=== PATIENT | male | born 1970 | race Caucasian/White ===

== ENCOUNTER 2019-07-27 17:24 | Inpatient (IN) | payer OTHER, SELFPAY ==
[2019-07-27 18:06] LABS: #Basophils 0.1 thou/uL (0.0-0.2); #Eosinphils 0.1 thou/uL (0.0-0.7); #Lymphocytes 2.6 thou/uL (1.20-3.40); #Monocytes 0.7 thou/uL (0.11-0.59); #Neutrophils 8.1 thou/uL (1.40-6.50); %Basophils 0.7 % (0.0-1.0); %Eosinophils 1.1 % (0.0-10.0); %Lymphocytes 22.2 % (21.0-51.0); %Monocytes 5.9 % (0.0-10.0); Hemoglobin 17.3 g/dL (14.0-18.0); Mean Corpuscular Hemoglobin 31.5 pg (27.0-31.0); Mean Corpuscular Volume 92.9 fL (78.0-98.0); Mean Platelet Volume 7.8 fL (7.4-10.4); Platelet Count 258 thou/uL (130-400); RBC Distribution Width 11.8 % (11.5-14.5); White Blood Cell (WBC) Count 11.6 thou/uL (4.8-10.8)
[2019-07-27] MEDS ORDERED: Diltiazem 125 MG/25 ML ONE (18:18)
[2019-07-27 18:20] LABS: INR-International Normal Ratio 1.1; PTT 31.6 SEC (22.9-36.1)
[2019-07-27 18:21] LABS: ALT (SGPT) 31 U/L (8-55); AST (SGOT) 18 U/L (5-34); Albumin 4.3 g/dL (3.5-5.0); Alkaline Phosphatase 80 U/L (40-110); Anion Gap 16 mmol/L (10-20); BUN (Urea Nitrogen) 26 mg/dL (8.9-20.6); Bilirubin, Total 0.8 mg/dL (0.2-1.2); CK (CPK) 103 U/L (30-200); Calc. Creatinine Clearance 0 mL/min (70-130); Calcium 9.8 mg/dL (7.8-10.44); Carbon Dioxide 23 mmol/L (22-29); Chloride 103 mmol/L (98-107); Estimated GFR-MDRD 50; Globulin 3.2 g/dL (2.4-3.5); Glucose 176 mg/dL (70-105); Potassium 3.9 mmol/L (3.5-5.1); Protein, Total 7.5 g/dL (6.0-8.3); Sodium 138 mmol/L (136-145)
--- NOTE | 2019-07-27 18:47 | RAD ---
Exam: Chest one view HISTORY:Tachycardia Comparison: 01/04/2016 FINDINGS: Cardiac silhouette: Normal Aorta: Unremarkable Pulmonary vessels: Normal Costophrenic angles: Clear Mediastinum: Questionable hiatal hernia LUNGS: No masses or consolidation. Pneumothorax: None Osseous abnormalities: None IMPRESSION: 1. No acute cardiopulmonary process. 2. Questionable hiatal hernia. 2 view chest radiograph is recommended.
[2019-07-27] MEDS ORDERED: Enoxaparin Sodium 100 MG/ML SYRINGE ONE (19:52)
[2019-07-27] MEDS ORDERED: Aspirin Chewable 81 MG TAB ONE (19:52)
[2019-07-27] MEDS ORDERED: Enoxaparin Sodium 60 MG/0.6 ML SYRINGE ONE (19:52)
[2019-07-27] MEDS ORDERED: Enoxaparin Sodium 80 MG/0.8 ML SYRINGE ONE (19:55)
[2019-07-27] MEDS ORDERED: Ondansetron PF 4 MG/2 ML Vial IVP PRN (20:18)
[2019-07-27] MEDS ORDERED: Acetaminophen 325 MG TAB PO PRN (20:18)
--- NOTE | 2019-07-27 20:32 | PDOC.HHP ---
Hospitalist HPI - History of Present Illness Palpitation, dizziness x 4 days History of Present Illness: 48 YO M with a PMH of CHF and Afib diagnosed in 2014 and currently on Amiodarone, BB and Coumadin, who presented to the ER w c/o dizziness and worsening palpations for 4 days. Pt noted he was running of his meds about 2 weeks ago. He takes part in an "indigent" program that assists with the payment of his meds. Pt had been unable to get this program renewed so he started taking half of his daily meds in an effort to stretch them out till he could get the indigent program approved and thus get a new prescription. 4 days ago, he noted he was having palpitations. He attempted taking extra doses of his med but his symps persisted. He denied CP, SOB, edema or fever. Today, he noted worsening dizziness and near syncope so he decided to come to the ER. Upon presentation to the ER, he was noted in Afib with RVR and started on cardene gtt. he will be admitted for further mgt. Hospitalist ROS - Review of Systems Constitutional: denies: fever, chills, sweats, weakness, malaise, other Eyes: denies: pain, vision change, conjunctivae inflammation, eyelid inflammation, redness, other ENT: denies: ear pain, ear discharge, nose pain, nose discharge, nose congestion , mouth pain, mouth swelling, throat pain, throat swelling, other Respiratory: denies: cough, dry, shortness of breath, hemoptysis, SOB with excertion, pleuritic pain, sputum, wheezing, other Cardiovascular: reports: palpitations, light headedness. denies: chest pain, orthopnea, paroxysmal noc. dyspnea, edema, other Gastrointestinal: denies: nausea, vomiting, abdominal pain, diarrhea, constipation, melena, hematochezia, other Genitourinary: denies: dysuria, frequency, incontinence, hematuria, retention, other Musculoskeletal: denies: neck pain, shoulder pain, arm pain, back pain, hand pain, leg pain, foot pain, other Skin: denies: rash, lesions, zbigniew, bruising, other Neurological: denies: weakness, numbness, incoordination, change in speech, confusion, seizures, other Hospitalist History - Past Medical History Cardiac: reports: AFIB, CHF, HTN - Past Surgical History Past Surgical History: reports: no pertinent history - Family History Family History: reports: Other (alcoholism in father) - Social History Smoking Status: Never smoker Alcohol: reports: Occassional Drugs: reports: marijuana Living Situation: Alone Activity level: independent ambulation - Exam General Appearance: NAD, awake alert Eye: PERRL, anicteric sclera ENT: normocephalic atraumatic, no oropharyngeal lesions, moist mucosa Neck: supple, symmetric, no JVD, no thyromegaly, no lymphadenopathy Heart: no murmur, no gallops, no rubs, irregular Respiratory: CTAB, no wheezes, no rales, no ronchi, normal chest expansion Gastrointestinal: soft, non-tender, non-distended, normal bowel sounds Extremities: no cyanosis, no clubbing, no edema Skin: no lesions, no rashes Neurological: cranial nerve grossly intact, no focal deficits Musculoskeletal: normal tone, normal strength Psychiatric: normal affect, normal behavior, A&O x 3, oriented to place Hospitalist Results - Labs Result Diagrams: 07/27/19 17:51 07/27/19 17:51 Lab results: WBC 11.6 thou/uL (4.8-10.8) H 07/27/19 17:51 Hgb 17.3 g/dL (14.0-18.0) 07/27/19 17:51 Hct 51.0 % (42.0-52.0) 07/27/19 17:51 MCV 92.9 fL (78.0-98.0) 07/27/19 17:51 Plt Count 258 thou/uL (130-400) 07/27/19 17:51 Neutrophils % 70.0 % (42.0-75.0) 07/27/19 17:51 Sodium 138 mmol/L (136-145) 07/27/19 17:51 Potassium 3.9 mmol/L (3.5-5.1) 07/27/19 17:51 Chloride 103 mmol/L (98-107) 07/27/19 17:51 Carbon Dioxide 23 mmol/L (22-29) 07/27/19 17:51 BUN 26 mg/dL (8.9-20.6) H 07/27/19 17:51 Creatinine 1.51 mg/dL (0.7-1.3) H 07/27/19 17:51 Glucose 176 mg/dL (70-105) H 07/27/19 17:51 Calcium 9.8 mg/dL (7.8-10.44) 07/27/19 17:51 Total Bilirubin 0.8 mg/dL (0.2-1.2) 07/27/19 17:51 AST 18 U/L (5-34) 07/27/19 17:51 ALT 31 U/L (8-55) 07/27/19 17:51 Alkaline Phosphatase 80 U/L (40-110) 07/27/19 17:51 Creatine Kinase 103 U/L (30-200) 07/27/19 17:51 Troponin I 0.016 ng/mL (< 0.028) 07/27/19 17:51 B-Natriuretic Peptide 72.8 pg/mL (0-100) 07/27/19 17:51 Serum Total Protein 7.5 g/dL (6.0-8.3) 07/27/19 17:51 Albumin 4.3 g/dL (3.5-5.0) 07/27/19 17:51 Hospitalist H&P A/P - Problem (1) Atrial fibrillation with RVR Code(s): I48.91 - UNSPECIFIED ATRIAL FIBRILLATION Status: Acute Assessment and Plan: Will admit to IMU. Cont cardene gtt, consult cardiology, order Echo, trend troponins. Will cont prior home meds of BB, Amiodarone and coumadin. Monitor INR and HR. F/u with Cardiac recs (2) Obesity, Class III, BMI 40-49.9 (morbid obesity) Code(s): E66.01 - MORBID (SEVERE) OBESITY DUE TO EXCESS CALORIES Status: Chronic Assessment and Plan: Have advised on diet and exercise. (3) BRIAN (acute kidney injury) Code(s): N17.9 - ACUTE KIDNEY FAILURE, UNSPECIFIED Status: Acute Assessment and Plan: Unsure of baseline. Will avoid nephrotoxic meds. Monitor Cr. (4) Chronic systolic CHF (congestive heart failure) Code(s): I50.22 - CHRONIC SYSTOLIC (CONGESTIVE) HEART FAILURE Status: Chronic Assessment and Plan: Does not appear to be in exacerbation. Will check BNP and Echo. Cont med mgt. (5) Leucocytosis Code(s): D72.829 - ELEVATED WHITE BLOOD CELL COUNT, UNSPECIFIED Status: Acute Qualifiers: Leukocytosis type: unspecified Qualified Code(s): D72.829 - Elevated white blood cell count, unspecified Assessment and Plan: May be due to acute phase reaction. Monitor for now. No abx. - Plan Plan: PPx: Pepcid and Lovenox. CODE: FULL. Dispo: Admit as inpt. Cardiac consult.
[2019-07-27] MEDS ORDERED: Amiodarone 200 MG TAB PO SCH (21:00)
[2019-07-28 00:43] LABS: Troponin I Less than 0.010 ng/mL (< 0.028)
[2019-07-28] MEDS ORDERED: Famotidine 20 MG TAB PO SCH (00:45)
[2019-07-28] MEDS ORDERED: Carvedilol 25 MG TAB PO SCH (00:45)
[2019-07-28 01:05] VITALS: BMI 54.2
[2019-07-28] MEDS: Famotidine 20 MG TAB PO SCH ×3 (01:21→20:36)
[2019-07-28] MEDS: Carvedilol 25 MG TAB PO SCH ×3 (01:21→20:36)
[2019-07-28] MEDS ORDERED: Diltiazem 125 MG in Sodium Chloride 0.9% 100 ML IVPB SCH (01:30)
[2019-07-28 04:02] LABS: #Basophils 0.1 thou/uL (0.0-0.2); #Eosinphils 0.2 thou/uL (0.0-0.7); #Lymphocytes 3.4 thou/uL (1.20-3.40); #Neutrophils 5.3 thou/uL (1.40-6.50); %Basophils 0.8 % (0.0-1.0); %Eosinophils 2.1 % (0.0-10.0); %Lymphocytes 34.2 % (21.0-51.0); %Monocytes 10.2 % (0.0-10.0); %Neutrophils 52.7 % (42.0-75.0); Hemoglobin 15.7 g/dL (14.0-18.0); Mean Corpuscular HGB CONC 33.4 g/dL (32.0-36.0); Mean Corpuscular Hemoglobin 31.6 pg (27.0-31.0); Mean Corpuscular Volume 94.8 fL (78.0-98.0); Mean Platelet Volume 7.4 fL (7.4-10.4); Platelet Count 216 thou/uL (130-400); Red Blood Cell (RBC) Count 4.97 mill/uL (4.70-6.10)
[2019-07-28 04:04] LABS: INR-International Normal Ratio 1.1; Prothrombin Time 14.4 SEC (12.0-14.7)
[2019-07-28 04:05] LABS: PTT 42.1 SEC (22.9-36.1)
[2019-07-28 04:18] LABS: Anion Gap 11 mmol/L (10-20); BUN (Urea Nitrogen) 27 mg/dL (8.9-20.6); Calc. Creatinine Clearance 227 mL/min (70-130); Calcium 8.7 mg/dL (7.8-10.44); Carbon Dioxide 25 mmol/L (22-29); Chloride 106 mmol/L (98-107); Estimated GFR-MDRD 84; Glucose 142 mg/dL (70-105); Potassium 3.8 mmol/L (3.5-5.1); Sodium 138 mmol/L (136-145)
[2019-07-28] MEDS: Furosemide 20 MG TAB PO SCH (08:40)
[2019-07-28] MEDS: Lisinopril 20 MG TAB PO SCH ×2 (08:40→09:07)
[2019-07-28] MEDS: Citalopram 20 MG TAB PO SCH (08:40)
[2019-07-28] MEDS: Thiamine 100 MG TAB PO SCH (08:41)
[2019-07-28] MEDS: Enoxaparin Sodium 120 MG/0.8 ML SYRINGE SC SCH ×2 (08:48→20:37)
[2019-07-28] MEDS: Enoxaparin Sodium 40 MG/0.4 ML SYRINGE SC SCH ×2 (08:48→20:37)
[2019-07-28] MEDS ORDERED: Amiodarone 200 MG TAB PO SCH ×2 (09:00)
[2019-07-28] MEDS: Warfarin Sodium 7.5 MG TAB PO SCH (16:39)
--- NOTE | 2019-07-28 19:08 | PDOC.HOSPP ---
- Subjective Subjective: Seen and examined. Titratable drip has been weaned off as his atrial fibrillation has been better controlled. Breathing comfortably on room air. Denies pain. Patient admits to rationing his medications as he was running out, this has caused him to go in to atrial fibrillation with rapid ventricular response and his Coumadin has been subtherapeutic. - Objective Vital Signs & Weight: Vital Signs (12 hours) Temp Pulse Resp BP BP Pulse Ox 07/28/19 15:45 97.4 F L 67 18 102/55 L 97 07/28/19 12:02 97.9 F 85 16 141/85 H 98 07/28/19 10:30 97.8 F 75 18 121/90 97 07/28/19 09:07 127/80 07/28/19 07:11 96 Weight Weight 367 lb 8.169 oz Most Recent Monitor Data Heart Rate from ECG 96 NIBP 127/80 NIBP BP-Mean 95 Respiration from ECG 27 SpO2 96 I&O: 07/27/19 07/28/19 07/29/19 06:59 06:59 06:59 Intake Total 1052.2 1670 Output Total 250 800 Balance 802.2 870 Result Diagrams: 07/28/19 03:48 07/28/19 03:48 Radiology Reviewed by me: Yes Hospitalist ROS - Review of Systems All other systems reviewed; all pertinent +/- noted in HPI/Subj - Medication Medications: Active Medications Generic Name Dose Route Start Last Admin Trade Name Freq PRN Reason Stop Dose Admin Carvedilol 25 mg 07/27/19 21:00 07/28/19 08:40 Coreg PO 25 mg BID LAZ Administration Citalopram Hydrobromide 20 mg 07/28/19 09:00 07/28/19 08:40 Celexa PO 20 mg DAILY LAZ Administration Enoxaparin Sodium 120 mg 07/28/19 09:00 07/28/19 08:48 Lovenox SC 120 mg 0900,2100 LAZ Administration Enoxaparin Sodium 40 mg 07/28/19 09:00 07/28/19 08:48 Lovenox SC 40 mg Q12HR LAZ Administration Famotidine 20 mg 07/27/19 21:00 07/28/19 08:40 Pepcid PO 20 mg BID LAZ Administration Furosemide 20 mg 07/28/19 09:00 07/28/19 08:40 Lasix PO 20 mg DAILY LAZ Administration Diltiazem HCl 125 mg/ Sodium 125 mls @ 0 mls/hr 07/28/19 01:30 07/28/19 02:01 Chloride IVPB 125 mls INF LAZ Administration Protocol Titrate Lisinopril 20 mg 07/28/19 09:00 07/28/19 09:07 Zestril PO 20 mg DAILY LAZ Administration Thiamine HCl 100 mg 07/28/19 09:00 07/28/19 08:41 Thiamine PO Not Given DAILY LAZ Warfarin Sodium 7.5 mg 07/28/19 17:00 07/28/19 16:39 Coumadin PO 7.5 mg 1700 LAZ Administration - Exam General Appearance: NAD, awake alert Eye: PERRL ENT: normocephalic atraumatic, moist mucosa Neck: supple, symmetric, no lymphadenopathy Heart: no murmur, no gallops, irregular Respiratory: CTAB, no wheezes, no rales, no ronchi Gastrointestinal: soft, non-tender, no guarding, no rigidity Extremities: 1+ LE edema Skin: no lesions, no rashes Neurological: cranial nerve grossly intact, no focal deficits Musculoskeletal: generalized weakness Psychiatric: normal affect, normal behavior, A&O x 3 Hosp A/P (1) CHF (congestive heart failure) Code(s): I50.9 - HEART FAILURE, UNSPECIFIED Status: Acute (2) Morbid obesity with BMI of 50.0-59.9, adult Code(s): E66.01 - MORBID (SEVERE) OBESITY DUE TO EXCESS CALORIES; Z68.43 - BODY MASS INDEX (BMI) 50.0-59.9, ADULT Status: Acute (3) BRIAN (acute kidney injury) Code(s): N17.9 - ACUTE KIDNEY FAILURE, UNSPECIFIED Status: Acute (4) Leucocytosis Code(s): D72.829 - ELEVATED WHITE BLOOD CELL COUNT, UNSPECIFIED Status: Acute Qualifiers: Leukocytosis type: unspecified Qualified Code(s): D72.829 - Elevated white blood cell count, unspecified (5) Atrial fibrillation with RVR Code(s): I48.91 - UNSPECIFIED ATRIAL FIBRILLATION Status: Acute - Plan Plan: intermediate medical care for, stable for downgraded to medical unit with telemetry cardiology consultation, recommendations appreciated weaned off titratable drip for a fib with RVR cardiomyopathy regimen full dose injectable Lovenox for anticoagulation coverage Bridge to Coumadin patient will need improve compliance with medical regimen in the outpatient setting to avoid future exacerbations of atrial fibrillation and heart failure continue other home medications is able G.I. prophylaxis DVT plover prophylaxis blood sugar control blood pressure control
[2019-07-28] MEDS: Amiodarone 200 MG TAB PO SCH (20:36)
--- NOTE | 2019-07-29 00:42 | CON ---
DATE OF CONSULTATION: 07/28/2019 REASON FOR CONSULTATION: Recurrent atrial fibrillation. HISTORY OF PRESENT ILLNESS: Mr. Filemon Coello is a pleasant 48-year-old gentleman with severe obesity and paroxysmal atrial fibrillation, who has now gone back into atrial fibrillation. Mr. Coello was in the hospital previously with atrial fibrillation and congestive heart failure in 2016. He was found to have depressed left ventricular function and atrial fibrillation. He underwent successful cardioversion and he was maintained on amiodarone. He has actually done really well over the last three and a half years. However, recently he was about to run out of his medicines. Therefore, he cut the doses in half. About nine days ago, he noticed that his heart beats seem to be irregular and did not feel nearly as well. He came to the hospital, where he was found to be in atrial fibrillation with a rapid ventricular response. MEDICATIONS: He was on carvedilol 25 twice a day, furosemide, Coumadin, and amiodarone, but he said in order to make the medicines last, he cut all his doses in half. REVIEW OF SYSTEMS: CONSTITUTIONAL: Please see below for further details on weight. VISION: No changes. HEARING: No changes. PULMONARY: No cough or wheezing. GASTROINTESTINAL: No nausea, vomiting, or diarrhea. SKIN: No rashes. NEUROLOGIC: No unilateral weakness or numbness. PSYCHIATRIC: No unusual depression or anxiety. He says he went on a ketogenic diet and lost from over 400 pounds down to 298, but has gradually gained weight back, now he is up to 367. PHYSICAL EXAMINATION: VITAL SIGNS: Blood pressure 140/80. Pulse 80, irregular. LUNGS: Clear. CARDIAC: Irregularly irregular. ABDOMEN: Soft, nontender. He is obese. EXTREMITIES: No clubbing or cyanosis. There is no significant edema. LABORATORY DATA: EKG did reveal atrial fibrillation with a rapid ventricular rate, now the rate is controlled. IMAGING STUDIES: Echocardiogram shows ejection fraction, has actually normalized, now 50% to 55%. ASSESSMENT: 1. Recurrent atrial fibrillation. 2. Morbid obesity. 3. Probably has some element of sleep apnea. 4. Subtherapeutic Coumadin level of 1.1. PLAN: 1. He is on Lovenox. 2. Back on amiodarone and carvedilol. 3. Recommend transesophageal echo, followed by cardioversion. Risks including injury to the esophagus and stroke discussed with this gentleman. He understands and wishes to proceed. He also understands he would be at increased risk of stroke if we left his fibrillation long-term. He understands the importance of trying to take medicines on regular basis. Unfortunately, he was about to run out of medicines, therefore, he cut the dose in half. Job ID: [id number]
[2019-07-29 04:48] LABS: Prothrombin Time 13.5 SEC (12.0-14.7)
[2019-07-29] MEDS: Lisinopril 20 MG TAB PO SCH ×2 (09:35→12:32)
[2019-07-29] MEDS: Carvedilol 25 MG TAB PO SCH ×3 (09:35→20:41)
[2019-07-29] MEDS: Amiodarone 200 MG TAB PO SCH ×3 (09:35→20:41)
[2019-07-29] MEDS: Citalopram 20 MG TAB PO SCH ×2 (09:36→12:38)
[2019-07-29] MEDS: Thiamine 100 MG TAB PO SCH ×2 (09:36→12:37)
[2019-07-29] MEDS: Famotidine 20 MG TAB PO SCH ×3 (09:36→20:41)
[2019-07-29] MEDS: Enoxaparin Sodium 40 MG/0.4 ML SYRINGE SC SCH ×3 (09:36→20:40)
[2019-07-29] MEDS: Furosemide 20 MG TAB PO SCH ×2 (09:36→12:38)
[2019-07-29] MEDS: Enoxaparin Sodium 120 MG/0.8 ML SYRINGE SC SCH ×3 (09:36→20:40)
[2019-07-29] MEDS ORDERED: PROPOFOL 200 MG/20 ML VIAL ONE (10:20)
[2019-07-29] MEDS ORDERED: PROPOFOL 40 ML ONE (10:47)
--- NOTE | 2019-07-29 11:55 | OP ---
DATE OF PROCEDURE: 07/29/2019 PROCEDURE PERFORMED: Transesophageal echocardiogram. INDICATION: A 48-year-old gentleman with paroxysmal atrial fibrillation. DESCRIPTION OF PROCEDURE: The patient was taken to the PACU. The patient was sedated by Anesthesiology. A transesophageal probe was placed into the distal esophagus and stomach. Echocardiographic images were obtained. The transesophageal probe was removed. FINDINGS: 1. Normal left ventricular systolic function. 2. Left atrial enlargement. 3. Normal mitral and aortic valve. 4. Mild mitral regurgitation. 5. Mild tricuspid regurgitation. 6. No thrombus noted in the left atrium or left atrial appendage. 7. Atherosclerotic debris in the descending aorta. Job ID: [id number]
--- NOTE | 2019-07-29 15:13 | PDOC.HOSPP ---
- Subjective Subjective: Breathing comfortably on room air. Off titratable drip, rate controlled. NPO for cardioversion. Time was given for questions, all answered in detail. - Objective Vital Signs & Weight: Vital Signs (12 hours) Temp Pulse Resp BP Pulse Ox 07/29/19 12:16 97.6 F 69 18 103/67 97 07/29/19 08:10 97.9 F 91 16 123/78 98 07/29/19 05:00 98.3 F 95 15 115/66 97 Weight Weight 369 lb 1.6 oz Most Recent Monitor Data Heart Rate from ECG 96 NIBP 127/80 NIBP BP-Mean 95 Respiration from ECG 27 SpO2 96 I&O: 07/28/19 07/29/19 07/30/19 06:59 06:59 06:59 Intake Total 1052.2 2030 Output Total 250 1400 Balance 802.2 630 Result Diagrams: 07/28/19 03:48 07/28/19 03:48 Radiology Reviewed by me: Yes Hospitalist ROS - Review of Systems All other systems reviewed; all pertinent +/- noted in HPI/Subj - Medication Medications: Active Medications Generic Name Dose Route Start Last Admin Trade Name Freq PRN Reason Stop Dose Admin Amiodarone HCl 200 mg 07/28/19 21:00 07/29/19 12:38 Cordarone PO 08/11/19 21:01 200 mg BID LAZ Administration Carvedilol 25 mg 07/27/19 21:00 07/29/19 12:32 Coreg PO Not Given BID LAZ Citalopram Hydrobromide 20 mg 07/28/19 09:00 07/29/19 12:38 Celexa PO 20 mg DAILY LAZ Administration Enoxaparin Sodium 120 mg 07/28/19 09:00 07/29/19 12:36 Lovenox SC 120 mg 0900,2100 LAZ Administration Enoxaparin Sodium 40 mg 07/28/19 09:00 07/29/19 12:37 Lovenox SC 40 mg Q12HR LAZ Administration Famotidine 20 mg 07/27/19 21:00 07/29/19 12:38 Pepcid PO 20 mg BID LAZ Administration Furosemide 20 mg 07/28/19 09:00 07/29/19 12:38 Lasix PO 20 mg DAILY LAZ Administration Diltiazem HCl 125 mg/ Sodium 125 mls @ 0 mls/hr 07/28/19 01:30 07/28/19 02:01 Chloride IVPB 125 mls INF LAZ Administration Protocol Titrate Lisinopril 20 mg 07/28/19 09:00 07/29/19 12:32 Zestril PO Not Given DAILY LAZ Sodium Chloride 10 ml 07/28/19 21:00 07/29/19 12:42 Flush - Normal Saline IVF 10 ml Q12HR LAZ Administration Thiamine HCl 100 mg 07/28/19 09:00 07/29/19 12:37 Thiamine PO 100 mg DAILY LAZ Administration Warfarin Sodium 7.5 mg 07/28/19 17:00 07/28/19 16:39 Coumadin PO 7.5 mg 1700 LAZ Administration - Exam General Appearance: NAD, awake alert Eye: anicteric sclera ENT: normocephalic atraumatic, moist mucosa Neck: supple, symmetric, no lymphadenopathy Heart: no murmur, no gallops, no rubs, irregular Respiratory: CTAB, no wheezes, no rales, no ronchi Gastrointestinal: soft, non-tender, no rigidity Extremities: no edema Skin: no lesions, no rashes Neurological: cranial nerve grossly intact, no focal deficits Musculoskeletal: generalized weakness Psychiatric: normal affect, normal behavior, A&O x 3 Hosp A/P (1) CHF (congestive heart failure) Code(s): I50.9 - HEART FAILURE, UNSPECIFIED Status: Acute (2) Morbid obesity with BMI of 50.0-59.9, adult Code(s): E66.01 - MORBID (SEVERE) OBESITY DUE TO EXCESS CALORIES; Z68.43 - BODY MASS INDEX (BMI) 50.0-59.9, ADULT Status: Acute (3) BRIAN (acute kidney injury) Code(s): N17.9 - ACUTE KIDNEY FAILURE, UNSPECIFIED Status: Acute (4) Leucocytosis Code(s): D72.829 - ELEVATED WHITE BLOOD CELL COUNT, UNSPECIFIED Status: Acute Qualifiers: Leukocytosis type: unspecified Qualified Code(s): D72.829 - Elevated white blood cell count, unspecified (5) Atrial fibrillation with RVR Code(s): I48.91 - UNSPECIFIED ATRIAL FIBRILLATION Status: Acute - Plan Plan: medical unit with telemetry cardiology consultation, recommendations appreciated NPO for cardioversion on 07/29 weaned off titratable drip for a fib with RVR cardiomyopathy regimen full dose injectable Lovenox for anticoagulation coverage Bridge to Coumadin patient will need improve compliance with medical regimen in the outpatient setting to avoid future exacerbations of atrial fibrillation and heart failure continue other home medications is able G.I. prophylaxis DVT plover prophylaxis blood sugar control blood pressure control
[2019-07-29] MEDS: Warfarin Sodium 7.5 MG TAB PO SCH (17:55)
--- NOTE | 2019-07-29 23:12 | OP ---
DATE OF PROCEDURE: 07/29/19 SURGEON: Magen Leiva M.D. PROCEDURE: Cardioversion INDICATION: Persistent atrial fibrillation. The patient is brought to the post cath area in the fasting state. He was sedated by the anesthesiol ogist. A transesophageal echo revealed no evidence of any significant formed thrombus. He was given 360 joules direct current synchronized energy and converted to sinus rhythm. The patient has severe morbid obesity which is the reason for the 360 joule dosage. CONCLUSIONS: Successful cardioversion.
[2019-07-30 04:30] LABS: INR-International Normal Ratio 1.1; Prothrombin Time 14.4 SEC (12.0-14.7)
--- NOTE | 2019-07-30 08:48 | PRG ---
DATE OF SERVICE: 07/30/2019 SUBJECTIVE: Mr. Coello is doing well. He underwent successful cardioversion yesterday. OBJECTIVE: VITAL SIGNS: Today, his blood pressure 114/65, pulse 66 and regular. LUNGS: Clear. CARDIAC: Normal S1 and normal S2. ABDOMEN: Soft and nontender. EXTREMITIES: There is no edema. PERTINENT LABORATORY DATA: His INR is 1.1. He said he has been eating a lot of green leafy vegetables. ASSESSMENT: 1. Successful cardioversion. 2. Left ventricular function is normalized. 3. Subtherapeutic Coumadin level. PLAN: 1. Given samples of Eliquis 5 mg twice a day. 2. We will get his prothrombin time checked in [place] and regulated there. 3. He will have 2 weeks worth of samples. I would recommend keeping him on the Eliquis until the INR is 2. Job ID: [id number]
[2019-07-30] MEDS ORDERED: Lisinopril 20 MG TAB PO SCH (09:00)
[2019-07-30] MEDS ORDERED: Lisinopril 5 MG TAB PO SCH (09:00)
[2019-07-30] MEDS ORDERED: Apixaban 5 MG TAB PO SCH (09:00)
[2019-07-30] MEDS: Carvedilol 25 MG TAB PO SCH (09:34)
[2019-07-30] MEDS: Thiamine 100 MG TAB PO SCH (09:34)
[2019-07-30] MEDS: Citalopram 20 MG TAB PO SCH (09:34)
[2019-07-30 12:20] VITALS: TEMP 97.8
[2019-07-30 16:17] VITALS: BP 104/54
[2019-07-30] MEDS ORDERED: Warfarin Sodium 10 MG TAB PO SCH (17:00)
--- NOTE | 2019-07-31 02:06 | DIS ---
DATE OF ADMISSION: 07/28/2019 DATE OF DISCHARGE: 07/30/2019 REASON FOR HOSPITALIZATION: Palpitations. SIGNIFICANT FINDINGS: The patient was found to be in atrial fibrillation with rapid ventricular response and required admission to the intensive care unit. Please see full history and physical, consultation notes, and progress notes for details. The patient was safely titrated off rate control agent and stabilized. The patient had no signs or symptoms of heart failure and an echocardiogram performed confirmed an ejection fraction of 50% to 55%. The patient was placed on a cardiomyopathy regimen as he does have a prior history of CHF. The patient does admit that he was not compliant with his medical regimen and had been taking half doses of his medicines because he is running out. Cardiology recommending a KRISTY with cardioversion, which was performed on 07/29/[address] Lazo-please see full operative report for details. Dr. Leiva performed cardioversion which was successful and the patient converted to sinus rhythm. The patient was transitioned to oral medications and recommended safe for discharge by Cardiology. Efforts were made with Case Management and the [facility] to ensure that medications could be delivered to bedside prior to discharge. The patient recommended safe for discharge by Cardiology in stable condition on 07/30/2019 after medications can be ensured to be delivered at bedside. CONDITION ON DISCHARGE: Stable. SPECIFIC INSTRUCTIONS FOR THE PATIENT/FAMILY: 1. The patient is recommended to take all medications as directed. 2. The patient is recommended to follow up with primary care physician in the next 5 to 7 days. 3. The patient is recommended to follow up with Cardiology in the next 1 to 2 weeks. 4. The patient is recommended to take all of his cardiac medications as directed or he is to return to acute care hospital immediately if he is unable to get any of these medications in the future, patient acknowledges these risks and states that he will not wean or ration medications in the future. 5. The patient is recommended to return to acute care hospital immediately if signs or symptoms return, worsen, or any other new symptoms occur. DISCHARGE MEDICATIONS: Please see full discharge medication list for details. 1. Eliquis 5 mg one tablet p.o. b.i.d. 2. Amiodarone 200 mg one tablet p.o. daily. 3. Carvedilol 25 mg one tablet p.o. b.i.d. 4. Lisinopril 5 mg one tablet p.o. daily. 5. Thiamine 100 mg one tablet p.o. daily. 6. Citalopram 40 mg one tablet p.o. daily. TIME SPENT: Greater than 36 minutes spent coordinating care and discharge process for this patient. Job ID: [id number]
[2019-08-12] MEDS ORDERED: Amiodarone 200 MG TAB PO SCH (09:00)
== END 2019-07-30 17:04 | disposition home or self-care (01) | DRG 309 ==
LOC: ERS 17:24 → CCU 07-28 00:01 → 2NO 07-28 10:28
PROVIDERS: ADMIT Hospitalist; ATTEND Hospitalist
PROC: B24BZZ4 Ultrasonography of Heart with Aorta, Transesophageal (ICD-10-PCS; principal; 2019-07-28)
PROC: 5A2204Z Restoration of Cardiac Rhythm, Single (ICD-10-PCS; 2019-07-28)
DX: I48.0 Paroxysmal atrial fibrillation (principal); N17.9 Acute kidney failure, unspecified; I50.22 Chronic systolic (congestive) heart failure; Z68.43 Body mass index [BMI] 50.0-59.9, adult; I11.0 Hypertensive heart disease with heart failure; D72.829 Elevated white blood cell count, unspecified; E66.01 Morbid (severe) obesity due to excess calories; F12.10 Cannabis abuse, uncomplicated; I50.9 Heart failure, unspecified; Z79.01 Long term (current) use of anticoagulants; Z87.891 Personal history of nicotine dependence
CPT/HCPCS: 36415; 71045; 80048; 80053; 82550; 83735; 83880; 84484; 85025; 85610; 85730; 92960; 93005; 93306; 93312; 96365; 96366; 96372; 96376; J1650; J2704; J3490

== ENCOUNTER 2019-11-02 14:21 | Observation (INO) | payer SELFPAY ==
[2019-11-02] MEDS ORDERED: Magnesium 2 GM/50 ML BAG (IN WATER) ONE (14:41)
[2019-11-02 14:47] LABS: #Eosinphils 0.3 thou/uL (0.0-0.7); #Lymphocytes 2.9 thou/uL (1.20-3.40); #Monocytes 0.8 thou/uL (0.11-0.59); #Neutrophils 5.9 thou/uL (1.40-6.50); %Eosinophils 2.7 % (0.0-10.0); %Lymphocytes 29.4 % (21.0-51.0); %Neutrophils 59.9 % (42.0-75.0); Mean Corpuscular HGB CONC 34.9 g/dL (32.0-36.0); Mean Corpuscular Volume 94.7 fL (78.0-98.0); Mean Platelet Volume 7.6 fL (7.4-10.4); Platelet Count 249 thou/uL (130-400); RBC Distribution Width 11.6 % (11.5-14.5); Red Blood Cell (RBC) Count 4.83 mill/uL (4.70-6.10); White Blood Cell (WBC) Count 9.9 thou/uL (4.8-10.8)
--- NOTE | 2019-11-02 15:12 | RAD ---
Chest one view HISTORY: Dyspnea. Palpitations. COMPARISON: 07/27/2019. FINDINGS: Cardiac silhouette is magnified by injection. Pulmonary vasculature is unremarkable. Medias tinum is midline. No lobar consolidation or evidence of pneumothorax. campus monitor leads overlie the chest. IMPRESSION : No active cardiopulmonary abnormalities are demonstrated.
[2019-11-02 15:13] LABS: ALT (SGPT) 25 U/L (8-55); AST (SGOT) 12 U/L (5-34); Albumin 4.3 g/dL (3.5-5.0); Alkaline Phosphatase 91 U/L (40-110); Anion Gap 15 mmol/L (10-20); BUN (Urea Nitrogen) 21 mg/dL (8.9-20.6); Bilirubin, Total 0.3 mg/dL (0.2-1.2); CK (CPK) 77 U/L (30-200); Calc. Creatinine Clearance 0 mL/min (70-130); Calcium 9.5 mg/dL (7.8-10.44); Carbon Dioxide 21 mmol/L (22-29); Chloride 107 mmol/L (98-107); Estimated GFR-MDRD 70; Globulin 2.6 g/dL (2.4-3.5); Glucose 129 mg/dL (70-105); Lipase 27 U/L (8-78); Potassium 4.3 mmol/L (3.5-5.1); Protein, Total 6.9 g/dL (6.0-8.3); Sodium 139 mmol/L (136-145)
[2019-11-02 15:20] LABS: INR-International Normal Ratio 1.2; Prothrombin Time 15.1 SEC (12.0-14.7)
[2019-11-02] MEDS ORDERED: Warfarin Sodium 10 MG TAB PO SCH (15:45)
[2019-11-02] MEDS ORDERED: Aspirin Chewable 81 MG TAB ONE (16:01)
[2019-11-02] MEDS ORDERED: Heparin 25,000 units/D5W 500 ML IVPB SCH (16:15)
--- NOTE | 2019-11-02 16:19 | PDOC.HHP ---
Hospitalist HPI - History of Present Illness Heart palps and SOB History of Present Illness: PCP: Ella Naik Weaver Apprentice: Dr. Leiva The patient is a 49/M with PMH significant for atrial fibrillation (on coumadin) , CHF, and morbid obesity that presents to the ER for the above complaint. 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 He became diaphoretic. Denies any chest pain, nausea or vomiting. he immediately went to his house, took his home medications, including amiodarone, coreg and lisinopril. He drank alot of water. After 30 minutes, he vomited up the water and possible some of his medications. He then laid down and rested. When he awoke, he immediately became diaphoretic, he checked his blood pressure, which his monitor showed 90/60 with heart rate 70s. So he felt good about these readings and did not seek further medical evaluation. Then this morning, he developed heart palpitations, SOB, DENNISON and light headedness. His blood pressure reading was 80s/50s with variable heart rate from 50s to 90s. So he decided to seek further medical attention and drove himself to the ER. Denies any recent fever or chills or cough. Denies any abdominal pain or diarrhea. Last Echo was in July of 2019 - EF 50-55% with mild tricuspid regurgitation ED Course: VS 99.2F, 119/77, 120, 22, 98%RA EKG afib with RVR 140s Trop - BNP 57.1 DD < .27 INR 1.2 CXR - Given: Coumadin 10mg po-held 1L NS Cardizem 10mg IVP mag 2gms ASA 324mg Heart rate controlled in 70s-90s Allergies:NKDA Home medications: 1. Coreg 25mg po BID 2. Amiodarone 200mg po q day 3. Lisinopril 5mg q am 4. Warfarin 5mg po q day 5. Citalopram 40mg po q am Hospitalist ROS - Review of Systems Constitutional: denies: fever, chills, sweats, weakness, malaise, other Eyes: denies: pain, vision change, conjunctivae inflammation, eyelid inflammation, redness, other ENT: denies: ear pain, ear discharge, nose pain, nose discharge, nose congestion , mouth pain, mouth swelling, throat pain, throat swelling, other Respiratory: reports: shortness of breath, SOB with excertion. denies: cough, dry, pleuritic pain, sputum, wheezing Cardiovascular: reports: palpitations, light headedness. denies: chest pain, orthopnea, paroxysmal noc. dyspnea, edema Gastrointestinal: reports: nausea, vomiting. denies: abdominal pain, diarrhea, constipation, melena, hematochezia Genitourinary: denies: dysuria, frequency, incontinence, hematuria, retention, other Musculoskeletal: denies: neck pain, shoulder pain, arm pain, back pain, hand pain, leg pain, foot pain, other Neurological: denies: weakness, numbness, incoordination, change in speech, confusion, seizures, other Hospitalist History - Past Medical History Source: patient Cardiac: reports: AFIB, CHF Pulmonary: reports: congestive heart failure Psych: reports: Anxiety - Past Surgical History Past Surgical History: reports: no pertinent history - Family History Family History: reports: cardiac disorder, diabetes mellitus - Social History Smoking Status: Current every day smoker Tobacco Type: cigarettes Alcohol: reports: Occassional Drugs: reports: marijuana Living Situation: Alone Occupation: Lives alone in [facility], does not work Activity level: independent ambulation - Exam General Appearance: NAD, awake alert Eye: anicteric sclera ENT: normocephalic atraumatic Neck: supple, no JVD Heart: no murmur, no gallops, no rubs, normal peripheral pulses, irregular Heart - other findings: distand heart sounds secondary body habitus Respiratory: CTAB, no wheezes, no rales, no ronchi, normal chest expansion, no tachypnea Respiratory - other findings: distant lung sound secondary body habitus Gastrointestinal: soft, non-tender, normal bowel sounds, no guarding, no rigidity Extremities: no cyanosis, no edema Neurological: no focal deficits Psychiatric: normal affect, A&O x 3 Hospitalist Results - Labs Result Diagrams: 11/02/19 16:31 11/02/19 14:33 Lab results: WBC 9.9 thou/uL (4.8-10.8) 11/02/19 14:33 Hgb 16.0 g/dL (14.0-18.0) 11/02/19 14:33 Hct 45.7 % (42.0-52.0) 11/02/19 14:33 MCV 94.7 fL (78.0-98.0) 11/02/19 14:33 Plt Count 249 thou/uL (130-400) 11/02/19 14:33 Neutrophils % 59.9 % (42.0-75.0) 11/02/19 14:33 Sodium 139 mmol/L (136-145) 11/02/19 14:33 Potassium 4.3 mmol/L (3.5-5.1) 11/02/19 14:33 Chloride 107 mmol/L (98-107) 11/02/19 14:33 Carbon Dioxide 21 mmol/L (22-29) L 11/02/19 14:33 BUN 21 mg/dL (8.9-20.6) H 11/02/19 14:33 Creatinine 1.13 mg/dL (0.7-1.3) 11/02/19 14:33 Glucose 129 mg/dL (70-105) H 11/02/19 14:33 Calcium 9.5 mg/dL (7.8-10.44) 11/02/19 14:33 Total Bilirubin 0.3 mg/dL (0.2-1.2) 11/02/19 14:33 AST 12 U/L (5-34) 11/02/19 14:33 ALT 25 U/L (8-55) 11/02/19 14:33 Alkaline Phosphatase 91 U/L (40-110) 11/02/19 14:33 Creatine Kinase 77 U/L (30-200) 11/02/19 14:33 Troponin I Less than 0.010 ng/mL (< 0.028) 11/02/19 14:33 B-Natriuretic Peptide 57.1 pg/mL (0-100) 11/02/19 14:33 Serum Total Protein 6.9 g/dL (6.0-8.3) 11/02/19 14:33 Albumin 4.3 g/dL (3.5-5.0) 11/02/19 14:33 Lipase 27 U/L (8-78) 11/02/19 14:33 - EKG Interpretation EKG: afib with RVR 140s - Radiology Interpretation Chest x-ray Status: report reviewed by il Hospitalist H&P A/P - Problem (1) Atrial fibrillation with RVR Code(s): I48.91 - UNSPECIFIED ATRIAL FIBRILLATION Status: Acute Assessment and Plan: Admit telemetry unit, observation status Expected length of stay less than 2 midnights upon assessment, afib rate controlled 70s-90s, asymptomatic Abbie consulted by ER doc, recommend possible cardioversion tomorrow Will trend troponins Will start heparin drip subtherapeutic INR Will hold other anticoagulants at this time. Will restart home BP medications including: Coreg 25mg BID Lisinopril 5mg po q day Amiodarone 200mg po q day NPO after midnight (2) Subtherapeutic international normalized ratio (INR) Code(s): R79.1 - ABNORMAL COAGULATION PROFILE Status: Acute Assessment and Plan: INR 1.2, possible cardioversion tomorrow Will hold coumadin dosing Will start heparin CV protocol (3) Chronic systolic CHF (congestive heart failure) Code(s): I50.22 - CHRONIC SYSTOLIC (CONGESTIVE) HEART FAILURE Status: Chronic Assessment and Plan: Last echocardiogram Jul 2019 EF 50-55% with mild tricuspid regurgitation BNP 57.1 No signs of FVO Will start HH diet, NPO after midnight Will perform DW (4) Morbid obesity with BMI of 50.0-59.9, adult Code(s): E66.01 - MORBID (SEVERE) OBESITY DUE TO EXCESS CALORIES; Z68.43 - BODY MASS INDEX (BMI) 50.0-59.9, ADULT Status: Chronic Assessment and Plan: HH diet (5) Tobacco abuse Code(s): Z72.0 - TOBACCO USE Status: Chronic Assessment and Plan: Educate tobacco cessation (6) Marijuana abuse Code(s): F12.10 - CANNABIS ABUSE, UNCOMPLICATED Status: Chronic Assessment and Plan: Educate smoking cessation. (7) Anxiety Code(s): F41.9 - ANXIETY DISORDER, UNSPECIFIED Status: Chronic - Plan Plan: Consult walking program Pepcid GI prophylaxis No DVT prophylaxis Full Code DPOA Mehnaz Malcolm, mother at [phone] Delarosa
[2019-11-02 16:41] LABS: Hemoglobin 14.9 g/dL (14.0-18.0); Platelet Count 210 thou/uL (130-400)
[2019-11-02] MEDS ORDERED: Acetaminophen 325 MG TAB PO PRN (16:48)
[2019-11-02 18:04] LABS: Troponin I Less than 0.010 ng/mL (< 0.028)
[2019-11-02 18:19] VITALS: BMI 54.6
[2019-11-02 20:56] LABS: Troponin I Less than 0.010 ng/mL (< 0.028)
[2019-11-02] MEDS: Famotidine 20 MG TAB PO SCH (22:06)
[2019-11-02] MEDS: Carvedilol 25 MG TAB PO SCH (22:06)
[2019-11-02] MEDS ORDERED: Sodium Chloride 0.9% 1,000 ML IV SCH (23:59)
[2019-11-03] MEDS: Heparin 10,000 UNITS/ 10 ML VIAL SLOW IVP SCH ×2 (01:07→09:31)
[2019-11-03 04:49] LABS: #Eosinphils 0.4 thou/uL (0.0-0.7); #Lymphocytes 3.4 thou/uL (1.20-3.40); #Monocytes 0.6 thou/uL (0.11-0.59); #Neutrophils 3.3 thou/uL (1.40-6.50); %Basophils 0.5 % (0.0-1.0); %Eosinophils 4.9 % (0.0-10.0); %Lymphocytes 44.1 % (21.0-51.0); %Monocytes 8.3 % (0.0-10.0); %Neutrophils 42.3 % (42.0-75.0); Hemoglobin 14.6 g/dL (14.0-18.0); Mean Corpuscular HGB CONC 33.6 g/dL (32.0-36.0); Mean Corpuscular Hemoglobin 32.3 pg (27.0-31.0); Mean Corpuscular Volume 96.3 fL (78.0-98.0); Mean Platelet Volume 8.6 fL (7.4-10.4); Platelet Count 190 thou/uL (130-400); RBC Distribution Width 11.9 % (11.5-14.5); Red Blood Cell (RBC) Count 4.51 mill/uL (4.70-6.10); White Blood Cell (WBC) Count 7.7 thou/uL (4.8-10.8)
[2019-11-03 05:30] LABS: Triglycerides 102 mg/dL (Less than 150)
[2019-11-03 05:31] LABS: Anion Gap 15 mmol/L (10-20); BUN (Urea Nitrogen) 21 mg/dL (8.9-20.6); Calc. Creatinine Clearance 255 mL/min (70-130); Calcium 8.6 mg/dL (7.8-10.44); Carbon Dioxide 18 mmol/L (22-29); Cardiac Risk 3.3 (Less than 4.5); Chloride 109 mmol/L (98-107); Cholesterol 144 mg/dl (< 200 Desired); Estimated GFR-MDRD Greater than 90; Glucose 112 mg/dL (70-105); HDL Cholesterol 44 mg/dL (>60 Neg Risk); Potassium 4.8 mmol/L (3.5-5.1); Sodium 137 mmol/L (136-145)
[2019-11-03 05:32] LABS: LDL Cholesterol, Calculated 80 mg/dL
[2019-11-03] MEDS ORDERED: PROPOFOL 200 MG/20 ML VIAL ONE (08:32)
[2019-11-03] MEDS: Carvedilol 25 MG TAB PO SCH (08:50)
[2019-11-03] MEDS ORDERED: Lisinopril 5 MG TAB PO SCH (09:00)
[2019-11-03] MEDS ORDERED: Citalopram 20 MG TAB PO SCH (09:00)
[2019-11-03] MEDS ORDERED: Amiodarone 200 MG TAB PO SCH (09:00)
[2019-11-03] MEDS ORDERED: Thiamine 100 MG TAB PO SCH (09:00)
--- NOTE | 2019-11-03 09:35 | CON ---
DATE OF CONSULTATION: 11/03/2019 REASON FOR CONSULTATION: Recurrent atrial fibrillation. HISTORY OF PRESENT ILLNESS: Mr. Coello is a 49-year-old gentleman with history of recurrent atrial fibrillation and morbid obesity. Mr. Coello initially presented with congestive heart failure symptoms and atrial fibrillation in 2015. He was able to be cardioverted and his ejection fraction actually later normalized. The patient did well for many years, came back with recurrent atrial fibrillation in July of 2019, underwent repeat transesophageal echo and cardioversion that was done successfully. He is feeling well up until 2 days ago, started feeling palpitations and weakness. The next day, he continued to feel poorly. He came back here and he is in recurrent atrial fibrillation. The patient does not feel well when he is in atrial fibrillation. No fever. No cough. No symptoms of upper respiratory infection. MEDICATIONS: 1. Carvedilol 25 mg twice a day. 2. Amiodarone 200 mg a day. 3. Coumadin, but his INR is subtherapeutic. This will be outlined below. REVIEW OF SYSTEMS: CONSTITUTIONAL: No significant weight loss. He is extremely obese. VISION: No changes. HEARING: No changes. PULMONARY: No cough or wheezing. GASTROINTESTINAL: No nausea, vomiting, or diarrhea. SKIN: No rashes. NEUROLOGIC: No unilateral weakness or numbness. PSYCHIATRIC: No unusual depression or anxiety. PERTINENT LABORATORY DATA: Hemoglobin is 14.6. The INR is 1.2. The patient was given samples of Eliquis, but he ran out of Eliquis. Started Coumadin, but he is subtherapeutic. PHYSICAL EXAMINATION: GENERAL: This is an extremely obese, 49-year-old gentleman with a BMI of 54.6, 5 feet 9 inches tall, and 370 pounds. EYES: Sclerae are nonicteric. MOUTH: Mucous membranes moist. NECK: Supple. No lymphadenopathy. LUNGS: Clear. No wheezing. CARDIAC: Irregularly irregular. HEART: Sounds distant. ABDOMEN: Obese, nontender. EXTREMITIES: No clubbing or cyanosis. There is no edema. DIAGNOSTIC STUDIES: EKG reveals atrial fibrillation. ASSESSMENT: 1. Recurrent atrial fibrillation, highly symptomatic. 2. Morbid obesity. PLAN: 1. Again, discussed the importance of weight loss, which he has been unable to achieve. 2. Transesophageal echo. Risks including injury to the mouth or teeth, stroke, heart attack, and bradycardia will be discussed. He understands and wished to proceed. He understands it is essential to lose weight. I also strongly advised him to try to get Medicaid if at all possible. Then, he could potentially be a candidate for atrial fibrillation ablation. This will also help him get the medicines, which is Eliquis or Xarelto. He cannot be reliably anticoagulated long-term with Coumadin. It appears he has not had a Coumadin level checked for a month and his INR is 1.2. It would not be safe in my opinion to do an ablation until he can reliably get the anticoagulants. The patient understands. Job ID: [id number]
[2019-11-03] MEDS ORDERED: PROPOFOL 20 ML ONE ×2 (12:14→12:44)
--- NOTE | 2019-11-03 12:23 | PDOC.HOSPP ---
- Subjective Encounter Date: 11/03/19 Encounter Time: 09:20 Subjective: no chest pain or palp now he woke up with palpitations and this has happened before no formal sleep study but he knows he has sleep apnea - Objective Vital Signs & Weight: Vital Signs (12 hours) Temp Pulse Resp BP BP Pulse Ox 11/03/19 11:22 97.6 F 78 16 117/68 97 11/03/19 08:50 91 121/93 H 11/03/19 07:30 97.4 F L 85 16 120/70 98 11/03/19 04:00 97.6 F 82 18 134/84 98 Weight Weight 370 lb I&O: 11/02/19 11/03/19 11/04/19 06:59 06:59 06:59 Intake Total 435 Output Total 800 Balance -365 Result Diagrams: 11/03/19 04:12 11/03/19 04:12 Hospitalist ROS - Medication Medications: Active Medications Generic Name Dose Route Start Last Admin Trade Name Freq PRN Reason Stop Dose Admin Amiodarone HCl 200 mg 11/03/19 09:00 11/03/19 08:51 Cordarone PO 200 mg DAILY LAZ Administration Carvedilol 25 mg 11/02/19 21:00 11/03/19 08:50 Coreg PO 25 mg BID LAZ Administration Citalopram Hydrobromide 40 mg 11/03/19 09:00 11/03/19 08:49 Celexa PO 40 mg DAILY LAZ Administration Famotidine 20 mg 11/02/19 21:00 11/02/19 22:06 Pepcid PO 20 mg BID LAZ Administration Heparin Sodium (Porcine) 0 units 11/02/19 16:15 11/03/19 09:31 Heparin 1,000 Units/Ml (10 Ml) SLOW IVP 4,000 unit ASDIR LAZ Administration Protocol Heparin Sodium/Dextrose 500 mls @ 0 mls/hr 11/02/19 16:15 11/03/19 01:08 Heparin 25,000 Units/D5w IVPB 500 mls INF LAZ Administration Protocol Per Protocol Sodium Chloride 1,000 mls @ 75 mls/hr 11/02/19 23:59 11/03/19 04:22 Normal Saline 0.9% IV 1,000 mls .[id number] LAZ Administration Lisinopril 5 mg 11/03/19 09:00 11/03/19 08:50 Zestril PO 5 mg DAILY LAZ Administration Thiamine HCl 100 mg 11/03/19 09:00 11/03/19 08:50 Thiamine PO 100 mg DAILY LAZ Administration - Exam General Appearance: awake alert Eye: PERRL, anicteric sclera ENT: no oropharyngeal lesions, moist mucosa Neck: supple, no JVD Heart: no murmur, irregular Respiratory: no wheezes, no rales Gastrointestinal: soft, non-tender, non-distended, normal bowel sounds Extremities: no cyanosis, no edema Neurological: cranial nerve grossly intact, no focal deficits Psychiatric: normal affect, A&O x 3 Hosp A/P (1) Atrial fibrillation with RVR Code(s): I48.91 - UNSPECIFIED ATRIAL FIBRILLATION Status: Acute (2) Anxiety Code(s): F41.9 - ANXIETY DISORDER, UNSPECIFIED Status: Chronic (3) Morbid obesity with BMI of 50.0-59.9, adult Code(s): E66.01 - MORBID (SEVERE) OBESITY DUE TO EXCESS CALORIES; Z68.43 - BODY MASS INDEX (BMI) 50.0-59.9, ADULT Status: Chronic (4) Tobacco abuse Code(s): Z72.0 - TOBACCO USE Status: Chronic (5) CHF (congestive heart failure) Code(s): I50.9 - HEART FAILURE, UNSPECIFIED Status: Chronic Qualifiers: Heart failure type: combined systolic and diastolic (6) GOGO (obstructive sleep apnea) Code(s): G47.33 - OBSTRUCTIVE SLEEP APNEA (ADULT) (PEDIATRIC) Status: Suspected - Plan is on amiodarone, coreg, lisinopril and heparin drip for KRISTY and cardioversion today if he fits into OR schedule, is npo will try to buy autopap from online stores and use it until he can get a formal sleep study counselled reg wtg loss, says he will go back on keto diet, is in a new relationship and his girlfriend is encouraging him as well hemostable
--- NOTE | 2019-11-03 13:21 | CON ---
DATE OF CONSULTATION: 11/03/2019 PROCEDURE PERFORMED: Transesophageal echocardiogram. INDICATION: This is a 49-year-old gentleman with paroxysmal atrial fibrillation. DESCRIPTION OF PROCEDURE: The patient was taken to the PACU. The patient was sedated by Anesthesiology. A transesophageal probe was placed into the distal esophagus and stomach. Echocardiographic images were obtained. The transesophageal probe was removed. FINDINGS: 1. There appears to be a mild decrease in left ventricular systolic function. 2. Normal mitral and aortic valves. 3. Mild mitral regurgitation. 4. Mild tricuspid regurgitation. 5. No thrombus in left atrial and left atrial appendage. 6. Atherosclerotic debris in the descending aorta. IMPRESSION: No formed thrombus in the left atrium and left atrial appendage. Job ID: [id number]
--- NOTE | 2019-11-03 14:24 | EKG ---
Test Reason : Blood Pressure : / mmHG Vent. Rate : 113 BPM Atrial Rate : 117 BPM P-R Int : 000 ms QRS Dur : 106 ms QT Int : 338 ms P-R-T Axes : 000 027 028 degrees QTc Int : 463 ms Atrial fibrillation with rapid ventricular response Abnormal ECG Confirmed by TIMO JOHNSON MD ([id number]), editor magazine LILY BARNETT ([id number]) on 11/03/2019 2:23:41 PM Referred By: Confirmed By:TIMO JOHNSON MD
[2019-11-03 15:51] LABS: PTT 119.6 SEC (22.9-36.1)
[2019-11-03] MEDS ORDERED: Rivaroxaban 10 MG TAB PO SCH (18:00)
[2019-11-03 20:04] VITALS: BP 119/71; TEMP 97.7
--- NOTE | 2019-11-04 13:54 | DIS ---
DATE OF ADMISSION: 11/02/2019 DATE OF DISCHARGE: 11/03/2019 DISCHARGE DISPOSITION: To home. PRIMARY DISCHARGE DIAGNOSES: Status post cardioversion of atrial fibrillation, morbid obesity, history of congestive heart failure with both systolic and diastolic dysfunction, tobacco abuse, anxiety disorder, possible underlying obstructive sleep apnea. PROCEDURES DONE DURING HOSPITALIZATION: The patient has had transesophageal echo done by Dr. Lazo on 11/03/2019, which showed mild decrease in LV dysfunction. No thrombus in left atrium and left atrial appendage. Normal mitral and aortic valves. Cardioversion done by Dr. Leiva. Chest x-ray showed no acute cardiopulmonary abnormalities. H and H of 14 and 43, platelet count 190, MCV is 96, and white count of 7. Total cholesterol 144, triglycerides 102, LDL 80, and HDL 44. Troponin x3 is negative. TSH 1.96. DISCHARGE MEDICATIONS: 1. Amiodarone 200 mg p.o. daily. 2. Carvedilol 25 mg twice daily. 3. Lisinopril 5 mg daily. 4. Xarelto 20 mg daily. 5. Thiamine 100 mg p.o. daily. 6. Citalopram 20 mg twice daily. ALLERGIES: NO KNOWN DRUG ALLERGIES. DISCHARGE PLAN: The patient to follow up with his primary care physician in [address] Leiva in 2 to 3 weeks. BRIEF COURSE DURING HOSPITALIZATION: The patient initially got admitted on the , with complaints of palpitations and shortness of breath. The patient had known history of paroxysmal atrial fibrillation in the past. He was found to be in atrial fibrillation with RVR. He has had prior cardioversions as well. His atrial fibrillation with RVR, likely is related to underlying undiagnosed obstructive sleep apnea with morbid obesity. The patient has not had health insurance and financial means to get a sleep study. He has had consultation with Dr. Leiva. Transesophageal echo done showed no thrombus, and the patient has had cardioversion done. He is currently in sinus rhythm. The patient was encouraged to obtain an auto PAP if he cannot get an outpatient sleep study in the interim. He was also counseled to stop smoking. He was counseled to lose weight, for which he is planning on going on a keto diet and losing weight. He has done this before, but quit. He has been cleared by Dr. Leiva for discharge. Please see a [id number] documentation for the day of discharge on [employer]. Job ID: [id number]
--- NOTE | 2019-11-09 19:11 | OP ---
DATE OF PROCEDURE: 11/03/19 SURGEON: Magen Leiva M.D. PROCEDURE: Cardioversion. PROCEDURE IN DETAIL: The patient is brought to the PACU in the fasting state. He was sedated by anesthesia. Transesophagea l echo revealed no evidence of any formed thrombus. Due to his very large BMI at 54.6, he was given 3 60 joules of direct current energy, synchronized and converted to sinus rhythm. CONCLUSIONS: Successful cardioversion.
== END 2019-11-03 20:05 | disposition home or self-care (01) ==
LOC: ERS 14:21 → 2NO 16:16
PROVIDERS: ADMIT Internal Medicine; ATTEND Internal Medicine
PROC: 5A2204Z Restoration of Cardiac Rhythm, Single (ICD-10-PCS; principal; 2019-11-03)
DX: I48.0 Paroxysmal atrial fibrillation (principal); E66.01 Morbid (severe) obesity due to excess calories; I50.40 Unspecified combined systolic (congestive) and diastolic (congestive) heart failure; F41.9 Anxiety disorder, unspecified; F12.10 Cannabis abuse, uncomplicated; F17.210 Nicotine dependence, cigarettes, uncomplicated; Z68.43 Body mass index [BMI] 50.0-59.9, adult; Z79.01 Long term (current) use of anticoagulants; Z79.899 Other long term (current) drug therapy
CPT/HCPCS: 36415; 36416; 71045; 80048; 80053; 80061; 82550; 83690; 83735; 83880; 84443; 84484; 85025; 85379; 85610; 85730; 92960; 93005; 93312; 94760; 96361; 96365; 96375; 96376; G0378; J1644; J2704; J3475

== ENCOUNTER 2020-10-16 17:08 | Inpatient (IN) | payer SELFPAY ==
[2020-10-16] MEDS ORDERED: Diltiazem 125 MG/25 ML ONE (17:57)
[2020-10-16 18:13] LABS: #Eosinphils 0.1 thou/uL (0.0-0.7); #Lymphocytes 2.3 thou/uL (1.20-3.40); #Monocytes 0.7 thou/uL (0.11-0.59); #Neutrophils 4.7 thou/uL (1.40-6.50); %Basophils 0.5 % (0.0-1.0); %Eosinophils 1.9 % (0.0-10.0); %Monocytes 8.8 % (0.0-10.0); %Neutrophils 59.9 % (42.0-75.0); Hemoglobin 14.7 g/dL (14.0-18.0); Mean Corpuscular HGB CONC 33.1 g/dL (32.0-36.0); Mean Corpuscular Hemoglobin 31.8 pg (27.0-31.0); Mean Platelet Volume 7.4 fL (7.4-10.4); Platelet Count 197 thou/uL (130-400); RBC Distribution Width 11.7 % (11.5-14.5); Red Blood Cell (RBC) Count 4.63 mill/uL (4.70-6.10); White Blood Cell (WBC) Count 7.9 thou/uL (4.8-10.8)
[2020-10-16 18:27] LABS: INR-International Normal Ratio 1.8; Prothrombin Time 21.3 sec (12.0-14.7)
[2020-10-16 18:31] LABS: ALT (SGPT) 14 U/L (8-55); AST (SGOT) 13 U/L (5-34); Albumin 3.7 g/dL (3.5-5.0); Alkaline Phosphatase 67 U/L (40-110); Anion Gap 11 mmol/L (10-20); BUN (Urea Nitrogen) 24 mg/dL (8.9-20.6); Bilirubin, Total 0.4 mg/dL (0.2-1.2); Calc. Creatinine Clearance 0 mL/min (70-130); Calcium 8.4 mg/dL (7.8-10.44); Carbon Dioxide 24 mmol/L (22-29); Chloride 108 mmol/L (98-107); Globulin 2.5 g/dL (2.4-3.5); Glucose 85 mg/dL (70-105); Potassium 4.4 mmol/L (3.5-5.1); Protein, Total 6.2 g/dL (6.0-8.3); Sodium 139 mmol/L (136-145)
[2020-10-16] MEDS ORDERED: Metoprolol Tartrate 25 MG TAB ONE (19:50)
[2020-10-17] MEDS ORDERED: Ondansetron PF 4 MG/2 ML Vial IVP PRN (00:22)
[2020-10-17] MEDS ORDERED: Ondansetron ODT 4 MG TAB PO PRN (00:22)
[2020-10-17] MEDS ORDERED: HYDROcodone/Acetaminophen 5/325 mg Tablet PO PRN (00:22)
[2020-10-17] MEDS ORDERED: Melatonin 3 MG TAB PO PRN (00:28)
[2020-10-17 04:57] LABS: #Eosinphils 0.2 thou/uL (0.0-0.7); #Lymphocytes 2.6 thou/uL (1.20-3.40); #Monocytes 0.8 thou/uL (0.11-0.59); #Neutrophils 3.4 thou/uL (1.40-6.50); %Basophils 0.5 % (0.0-1.0); %Eosinophils 2.8 % (0.0-10.0); %Lymphocytes 37.3 % (21.0-51.0); %Monocytes 11.2 % (0.0-10.0); %Neutrophils 48.2 % (42.0-75.0); Hemoglobin 14.3 g/dL (14.0-18.0); Mean Corpuscular HGB CONC 33.2 g/dL (32.0-36.0); Mean Corpuscular Hemoglobin 32.1 pg (27.0-31.0); Mean Corpuscular Volume 96.5 fL (78.0-98.0); Mean Platelet Volume 7.5 fL (7.4-10.4); Platelet Count 172 thou/uL (130-400); RBC Distribution Width 11.8 % (11.5-14.5); Red Blood Cell (RBC) Count 4.45 mill/uL (4.70-6.10)
[2020-10-17 05:00] LABS: INR-International Normal Ratio 1.8; Prothrombin Time 20.9 sec (12.0-14.7)
[2020-10-17 05:13] LABS: Anion Gap 12 mmol/L (10-20); BUN (Urea Nitrogen) 22 mg/dL (8.9-20.6); Calc. Creatinine Clearance 0 mL/min (70-130); Calcium 8.5 mg/dL (7.8-10.44); Carbon Dioxide 23 mmol/L (22-29); Chloride 108 mmol/L (98-107); Glucose 105 mg/dL (70-105); Potassium 3.9 mmol/L (3.5-5.1); Sodium 139 mmol/L (136-145)
[2020-10-17] MEDS: Lisinopril 5 MG TAB PO SCH (09:23)
[2020-10-17] MEDS: Multivit, Therapeutic 1 TAB PO SCH (09:24)
[2020-10-17] MEDS ORDERED: Enoxaparin Sodium 120 MG/0.8 ML SYRINGE SC SCH (10:00)
[2020-10-17] MEDS ORDERED: Enoxaparin Sodium 100 MG/ML SYRINGE SC SCH (10:30)
[2020-10-17] MEDS ORDERED: Enoxaparin Sodium 40 MG/0.4 ML SYRINGE SC SCH (10:30)
[2020-10-17 16:33] LABS: Hemoglobin 15.8 g/dL (14.0-18.0); Platelet Count 213 thou/uL (130-400)
[2020-10-17] MEDS ORDERED: Warfarin Sodium 5 MG TAB PO SCH (17:00)
[2020-10-17] MEDS: Warfarin Sodium 5 MG TAB PO SCH (17:59)
[2020-10-17 18:42] VITALS: BMI 50.2
[2020-10-17 19:45] LABS: SARS-CoV-2 PCR NAA for Saliva Not Detected (NotDetected)
[2020-10-17] MEDS: Enoxaparin Sodium 100 MG/ML SYRINGE SC SCH (21:17)
[2020-10-17] MEDS: clonazePAM 0.5 MG TAB PO PRN (21:17)
[2020-10-17] MEDS: Enoxaparin Sodium 40 MG/0.4 ML SYRINGE SC SCH (21:18)
[2020-10-18 04:57] LABS: Prothrombin Time 23.1 sec (12.0-14.7)
[2020-10-18] MEDS: Lisinopril 5 MG TAB PO SCH (08:13)
[2020-10-18] MEDS: Multivit, Therapeutic 1 TAB PO SCH (08:14)
[2020-10-18 09:35] LABS: Prothrombin Time 23.3 sec (12.0-14.7)
[2020-10-18] MEDS ORDERED: Lidocaine 1% PF 5 ML VIAL ONE (10:11)
[2020-10-18] MEDS ORDERED: PROPOFOL 200 MG/20 ML VIAL ONE (10:11)
[2020-10-18] MEDS ORDERED: PROPOFOL 40 ML ONE (10:35)
[2020-10-18] MEDS ORDERED: Potassium Chloride 20 MEQ TAB PO SCH (11:15)
[2020-10-18] MEDS: Enoxaparin Sodium 100 MG/ML SYRINGE SC SCH ×2 (12:39→21:21)
[2020-10-18] MEDS: Enoxaparin Sodium 40 MG/0.4 ML SYRINGE SC SCH ×2 (12:40→21:21)
[2020-10-18] MEDS: Warfarin Sodium 5 MG TAB PO SCH (17:38)
[2020-10-18] MEDS: clonazePAM 0.5 MG TAB PO PRN (21:19)
[2020-10-18] MEDS: Amiodarone 200 MG TAB PO SCH (21:50)
[2020-10-19] MEDS ORDERED: Amiodarone 200 MG TAB PO SCH (09:00)
[2020-10-19] MEDS: Lisinopril 5 MG TAB PO SCH (09:27)
[2020-10-19] MEDS: Enoxaparin Sodium 100 MG/ML SYRINGE SC SCH (09:27)
[2020-10-19] MEDS: Multivit, Therapeutic 1 TAB PO SCH (09:27)
[2020-10-19] MEDS: Enoxaparin Sodium 40 MG/0.4 ML SYRINGE SC SCH (09:32)
[2020-10-19] MEDS: Amiodarone 200 MG TAB PO SCH (09:34)
[2020-10-19 10:09] LABS: #Eosinphils 0.1 thou/uL (0.0-0.7); #Lymphocytes 1.9 thou/uL (1.20-3.40); #Monocytes 0.5 thou/uL (0.11-0.59); #Neutrophils 2.9 thou/uL (1.40-6.50); %Basophils 0.9 % (0.0-1.0); %Eosinophils 2.6 % (0.0-10.0); %Lymphocytes 34.1 % (21.0-51.0); %Monocytes 9.6 % (0.0-10.0); %Neutrophils 52.8 % (42.0-75.0); Hemoglobin 14.1 g/dL (14.0-18.0); Mean Corpuscular Hemoglobin 31.8 pg (27.0-31.0); Mean Corpuscular Volume 96.6 fL (78.0-98.0); Mean Platelet Volume 7.4 fL (7.4-10.4); Platelet Count 169 thou/uL (130-400); RBC Distribution Width 11.9 % (11.5-14.5); Red Blood Cell (RBC) Count 4.44 mill/uL (4.70-6.10); White Blood Cell (WBC) Count 5.4 thou/uL (4.8-10.8)
[2020-10-19 10:16] LABS: INR-International Normal Ratio 2.2
[2020-10-19 10:40] LABS: Anion Gap 8 mmol/L (10-20); BUN (Urea Nitrogen) 18 mg/dL (8.9-20.6); Calc. Creatinine Clearance 248 mL/min (70-130); Calcium 8.6 mg/dL (7.8-10.44); Carbon Dioxide 27 mmol/L (22-29); Chloride 104 mmol/L (98-107); Glucose 117 mg/dL (70-105); Potassium 3.8 mmol/L (3.5-5.1); Sodium 135 mmol/L (136-145)
[2020-10-19 15:23] VITALS: BP 110/65; TEMP 98.5
== END 2020-10-19 16:18 | disposition home or self-care (01) | DRG 309 ==
LOC: ERS 17:08 → 2NO 19:39 → OBSVTOIN 10-17 16:26
PROVIDERS: ADMIT Student in an Organized Health Care Education/Training Program; ATTEND Internal Medicine
PROC: B24BZZ4 Ultrasonography of Heart with Aorta, Transesophageal (ICD-10-PCS; principal; 2020-10-19)
PROC: 5A2204Z Restoration of Cardiac Rhythm, Single (ICD-10-PCS; 2020-10-19)
DX: I48.0 Paroxysmal atrial fibrillation (principal); Z68.43 Body mass index [BMI] 50.0-59.9, adult; I50.22 Chronic systolic (congestive) heart failure; E66.01 Morbid (severe) obesity due to excess calories; F32.9 Major depressive disorder, single episode, unspecified; F41.9 Anxiety disorder, unspecified; I08.1 Rheumatic disorders of both mitral and tricuspid valves; Z88.5 Allergy status to narcotic agent; Z79.01 Long term (current) use of anticoagulants; Z87.891 Personal history of nicotine dependence
CPT/HCPCS: 36415; 36416; 71045; 80048; 80053; 84484; 85025; 85610; 87635; 92960; 93005; 93306; 93312; 96365; 96366; 96372; G0378; J1650; J2704; U0003; U0005